=== PATIENT | female | born 1975 | race Caucasian/White ===

== ENCOUNTER 2021-02-12 13:45 | Outpatient (CLI) | payer OTHER | END 2021-02-12 13:46 | disposition home or self-care (01) | LOC: CSHMAMMO 13:45 | PROVIDERS: ATTEND Obstetrics & Gynecology | DX: Z12.31 Encounter for screening mammogram for malignant neoplasm of breast (principal); Z80.3 Family history of malignant neoplasm of breast | CPT/HCPCS: 77063; 77067 ==

== ENCOUNTER 2022-05-26 14:00 | Outpatient (CLI) | payer BC | END 2022-05-26 14:01 | disposition home or self-care (01) | LOC: CSHMAMMO 14:00 | PROVIDERS: ATTEND Obstetrics & Gynecology | DX: Z12.31 Encounter for screening mammogram for malignant neoplasm of breast (principal); Z80.3 Family history of malignant neoplasm of breast | CPT/HCPCS: 77063; 77067 ==

== ENCOUNTER 2023-10-06 13:00 | Outpatient (CLI) | payer BC | END 2023-10-06 13:01 | disposition home or self-care (01) | LOC: CSHMAMMO 13:00 | PROVIDERS: ATTEND Nurse Practitioner Family | DX: Z12.31 Encounter for screening mammogram for malignant neoplasm of breast (principal); Z80.3 Family history of malignant neoplasm of breast | CPT/HCPCS: 77063; 77067 ==